=== PATIENT | female | born 1945 | race Caucasian/White ===

== ENCOUNTER 2022-12-08 09:25 | Day surgery (SDC) | payer MEDICARE, SELFPAY ==
[2022-10-07 14:45] VITALS: BMI 29.1
--- NOTE | 2022-12-04 12:49 | MHC.SHP ---
Pre-Procedural Eval Section A Date of Service: 12/04/22 The patient is an INPATIENT: No Changes since office visit: No Cold of Flu in the past 2 weeks, No New Medical Problems, No Changes in Medication and No Patient answered all questions The History & Physical has been completed within 30 days and I have reviewed it.: Yes Section B Chief Complaint: Age-related nuclear cataract, right eye Allergies: Allergies Allergy/AdvReac Type Severity Reaction Status Date / Time No Known Allergies Allergy Verified 10/07/22 14:44 [No Known Allergies*] Plan Diagnosis/Plan: Unchanged I have reviewed the history and physical and performed a pertinent physical examination on my patient. No changes have occurred unless specified. Time Spent With Patient Time: Total time managing care of this patient today ____ minutes.
--- NOTE | 2022-12-05 12:02 | HO.ANESPROP2 ---
Documented by User: Jana Duggan NP 12/05/22 12:02 HPI - Anesthesia Eval Consult details Narrative: 77yo F for Right Cataract Extraction IOL Insertion PCP cleared No previous cataract on record [facility] Past Medical History Medical History (Updated 10/07/22 @ 14:33 by Sol Mcclendon RN) CVA (cerebral vascular accident) Elevated cholesterol Surgical History Surgical History (Updated 10/07/22 @ 14:32 by Sol Mcclendon RN) History of hip surgery History of total left hip replacement Hx of blepharoplasty Hx of melanoma excision Social History Social History Are you a primary primary care coordinator to a significant other at home: No Do you presently have visiting nurse or other home services: No Patient Tobacco Use Status: Never used Tobacco Use of substances other than those prescribed or required for medical reasons: No Have you been hit, kicked, punched, or otherwise hurt by someone within the past year? If so, by whom?: No Are you DNR?: No Advance Directives Information Provided: Yes (as above noted-will bring copy DOS) Advance Directives on File: No Recently lost weight without trying: No Eating poorly because of decreased appetite: No Nutrition Risks: No Nutritional Risk Poor oral hygiene: No (has some missing teeth) Meds Allergies Allergy/AdvReac Type Severity Reaction Status Date / Time No Known Allergies Allergy Verified 10/07/22 14:44 [No Known Allergies*] Home Medications Medication Instructions Recorded Confirmed Last Taken Type aspirin 81 mg tablet,delayed 81 mg PO DAILY 10/07/22 10/07/22 12/01/22 History release cholecalciferol (vitamin D3) 50 50 mcg PO DAILY 10/07/22 10/07/22 12/07/22 History mcg (2,000 unit) capsule (Vitamin D3) pravastatin 10 mg tablet 10 mg PO QAM 10/07/22 10/07/22 12/07/22 History Exam Exam Date and Time: December 05, 2022 1202 Height,Weight and Vital Signs: Height 5 ft 5 in Weight 79.379 kg Assessment and Plan Assessment Anesthesia Assessment: Chart Reviewed Documented by User: Jessica Rivera MD 12/08/22 11:24 [facility] Past Medical History Medical History (Updated 10/07/22 @ 14:33 by Sol Mcclendon, RYAN) CVA (cerebral vascular accident) Elevated cholesterol Family History Family history of problems with anesthesia: No Surgical History Surgical History (Updated 10/07/22 @ 14:32 by Sol Mcclendon RN) History of hip surgery History of total left hip replacement Hx of blepharoplasty Hx of melanoma excision History of Problems with Anesthesia: No Social History Social History Are you a primary primary care coordinator to a significant other at home: No Do you presently have visiting nurse or other home services: No Patient Tobacco Use Status: Never used Tobacco Use of substances other than those prescribed or required for medical reasons: No Have you been hit, kicked, punched, or otherwise hurt by someone within the past year? If so, by whom?: No Are you DNR?: No Advance Directives Information Provided: Yes (as above noted-will bring copy DOS) Advance Directives on File: No Recently lost weight without trying: No Eating poorly because of decreased appetite: No Nutrition Risks: No Nutritional Risk Poor oral hygiene: No (has some missing teeth) Meds Allergies Allergy/AdvReac Type Severity Reaction Status Date / Time No Known Allergies Allergy Verified 10/07/22 14:44 [No Known Allergies*] Home Medications Medication Instructions Recorded Confirmed Last Taken Type aspirin 81 mg tablet,delayed 81 mg PO DAILY 10/07/22 10/07/22 12/01/22 History release cholecalciferol (vitamin D3) 50 50 mcg PO DAILY 10/07/22 10/07/22 12/07/22 History mcg (2,000 unit) capsule (Vitamin D3) pravastatin 10 mg tablet 10 mg PO QAM 10/07/22 10/07/22 12/07/22 History Exam Height,Weight and Vital Signs: Height 5 ft 5 in Weight 79.379 kg Vital Signs Temp Pulse Resp BP Pulse Ox O2 Del Method 12/08/22 10:31 97 F 74 20 156/80 H 96 Room Air Airway Mallampati Class: II (Crowding of teeth) TM Dist: >3cm Neck ROM: Full Loose/Missing/Broken Teeth: No (Denies broken, loose, missing teeth) Heart: RRR Lungs: CTAB Assessment and Plan Assessment Anesthesia Assessment: Anesthesia Plan Discussed Final Anesthetic Review Family History of Problems with Anesthesia: No History of Problems with Anesthesia: No NPO: Yes ASA Class: III Final Preanesthetic Review: No Changes in Pt Med Stat, Meds/Allgs Chart Reviewed, Consent Obtained/Reviewed and Anes Risks/Benef Reviewed Patient Risk: Intermediate Procedure Risk: Low Assessment/Block/Sedation in SS: Assess/Block/Sedation-SS Anesthetic Plan Anesthetic Plan: MAC: Disposition: Standard PACU
[2022-12-08 10:31] VITALS: BP 156/80; PULSE 74; RESP 20; TEMP 36.1; O2SAT 96
[2022-12-08] MEDS: Ketorolac Tromethamine 0.5% Op 5 ML DROPS 1 DROP EYE-RIGHT ×3 (10:46→10:48)
[2022-12-08] MEDS: Tetracaine HCl/PF 0.5% Oph Sol 4 ML DROPS 1 DROP EYE-RIGHT (10:46)
[2022-12-08] MEDS: Lactated Ringers 500 ML 50 ML IV (10:46)
[2022-12-08] MEDS: Phenylephrine HCL 2.5% Oph SoL 2 ML BOTTLE 1 DROP EYE-RIGHT ×3 (10:46→10:48)
[2022-12-08] MEDS: Cyclopentolate 1 % Ophth Sol 2 ML DRPBTL 1 DROP EYE-RIGHT ×3 (10:46→10:47)
[2022-12-08] MEDS: Tropicamide 1 % Ophth Sol 3 ML BTL 1 DROP EYE-RIGHT ×3 (10:46→10:47)
--- NOTE | 2022-12-08 12:16 | HO.PNOPHT ---
Ophthalmology Procedure Procedure Date of Service: 12/08/22 Ophthalmology Viscoelastic: Radha Mcmanust Dual Pack Pro Ophthalmology Lenses: TECPARTH [id number] (19) Procedure Notes: PREOPERATIVE DIAGNOSIS: Decreased visual acuity right eye secondary to cataract POSTOPERATIVE DIAGNOSIS: Same PROCEDURE: Right cataract extraction with intraocular lens insertion SURGEON: Daniel Ta M.D. ANESTHESIA: Topical/MAC ESTIMATED BLOOD LOSS: None COMPLICATIONS: None After obtaining informed consent, the patient was brought to the operating room suite and placed in the supine position. After adequate sedation per anesthesia, topical drops of Tetracaine were given to the right eye. The eye was then prepped and draped in the usual sterile fashion. The operating room microscope was then positioned over the operative eye and a lid speculum placed. A paracentesis was created. Viscoelastic was then instilled into the anterior chamber. A three plane incision was then created temporally, utilizing a 2.85 mm keratome. Capsulotomy forceps were then utilized to create a circular tear capsulotomy. Hydrodissection and hydrodelineation were carried out until adequate mobilization of the nucleus occurred. Phacoemulsification was then utilized to remove the dense central nucleus followed by removal of the cortical material utilizing the automated aspiration irrigation unit. Viscoelastic was instilled into the posterior capsular bag followed by placement of a posterior chamber intraocular lens without difficulty. The residual Viscoelastic was then removed utilizing the automated IA machine. The wound was checked and found to be watertight. The patient tolerated the procedure well and the lid speculum was removed. Intracameral injection of Vigamox 0.1 mL followed by a subtenon injection of Kenalog-40 0.2 mL were administered. The patient will be seen in the a.m.
[2022-12-08 12:43] VITALS: BP 177/85; PULSE 71; RESP 18; TEMP 37.5; O2SAT 96
== END 2022-12-08 12:47 | disposition home or self-care (01) ==
PROVIDERS: PCP Internal Medicine; Visit Provider Ophthalmology
PROC: (CPT 66985; principal; 2022-12-08 13:20)
DX: H25.11 Age-related nuclear cataract, right eye (principal); H40.013 Open angle with borderline findings, low risk, bilateral; H35.361 Drusen (degenerative) of macula, right eye; H35.00 Unspecified background retinopathy; E78.00 Pure hypercholesterolemia, unspecified; M81.0 Age-related osteoporosis without current pathological fracture; Z86.73 Personal history of transient ischemic attack (TIA), and cerebral infarction without residual deficits; Z87.81 Personal history of (healed) traumatic fracture; Z91.81 History of falling; Z85.820 Personal history of malignant melanoma of skin; Z79.899 Other long term (current) drug therapy; Z79.82 Long term (current) use of aspirin
CPT/HCPCS: 66984; J2250; J3010; J3301; V2632

== ENCOUNTER 2022-12-22 09:37 | Day surgery (SDC) | payer MEDICARE, SELFPAY ==
[2022-10-07 14:48] VITALS: BMI 29.1
--- NOTE | 2022-12-19 08:47 | MHC.SHP ---
Pre-Procedural Eval Section A Date of Service: 12/19/22 The patient is an INPATIENT: No Changes since office visit: No Cold of Flu in the past 2 weeks, No New Medical Problems, No Changes in Medication and No Patient answered all questions The History & Physical has been completed within 30 days and I have reviewed it.: Yes Section B Chief Complaint: Age-related nuclear cataract, left eye Allergies: Allergies Allergy/AdvReac Type Severity Reaction Status Date / Time No Known Allergies Allergy Verified 10/07/22 14:44 [No Known Allergies*] Plan Diagnosis/Plan: Unchanged I have reviewed the history and physical and performed a pertinent physical examination on my patient. No changes have occurred unless specified. Time Spent With Patient Time: Total time managing care of this patient today ____ minutes.
--- NOTE | 2022-12-19 10:10 | HO.ANESPROP2 ---
Documented by User: Jana Duggan NP 12/19/22 10:10 HPI - Anesthesia Eval Consult details Narrative: 77yo F for Left Cataract Extraction IOL Insertion PCP cleared Right eye 12/08/22 with MAC: No anesthesia record available [facility] Past Medical History Medical History CVA (cerebral vascular accident) Elevated cholesterol Family History Family history of problems with anesthesia: No Surgical History Surgical History History of hip surgery History of total left hip replacement Hx of blepharoplasty Hx of melanoma excision History of Problems with Anesthesia: No Social History Social History Are you a primary home health care case manager to a significant other at home: No Do you presently have visiting nurse or other home services: No Patient Tobacco Use Status: Never used Tobacco Use of substances other than those prescribed or required for medical reasons: No Have you been hit, kicked, punched, or otherwise hurt by someone within the past year? If so, by whom?: No Are you DNR?: No Advance Directives Information Provided: Yes (as above noted-will bring copy DOS) Advance Directives on File: No Recently lost weight without trying: No Eating poorly because of decreased appetite: No Nutrition Risks: No Nutritional Risk Poor oral hygiene: No (has some missing teeth) Meds Allergies Allergy/AdvReac Type Severity Reaction Status Date / Time No Known Allergies Allergy Verified 12/22/22 10:09 [No Known Allergies*] Home Medications Medication Instructions Recorded Confirmed Last Taken Type aspirin 81 mg tablet,delayed 81 mg PO DAILY 10/07/22 10/07/22 12/01/22 History release cholecalciferol (vitamin D3) 50 50 mcg PO DAILY 10/07/22 10/07/22 12/07/22 History mcg (2,000 unit) capsule (Vitamin D3) pravastatin 10 mg tablet 10 mg PO QAM 10/07/22 10/07/22 12/07/22 History Exam Exam Date and Time: December 19, 2022 1010 Height,Weight and Vital Signs: Height 5 ft 5 in Weight 79.379 kg Assessment and Plan Assessment Anesthesia Assessment: Chart Reviewed Final Anesthetic Review Family History of Problems with Anesthesia: No History of Problems with Anesthesia: No Documented by User: Sha Ocampo MD 12/22/22 13:58 PMF[facility] Past Medical History Medical History CVA (cerebral vascular accident) Elevated cholesterol Functional capacity: independent ambulation Surgical History Surgical History History of hip surgery History of total left hip replacement Hx of blepharoplasty Hx of melanoma excision Social History Social History Are you a primary home health care case manager to a significant other at home: No Do you presently have visiting nurse or other home services: No Patient Tobacco Use Status: Never used Tobacco Use of substances other than those prescribed or required for medical reasons: No Have you been hit, kicked, punched, or otherwise hurt by someone within the past year? If so, by whom?: No Are you DNR?: No Advance Directives Information Provided: Yes (as above noted-will bring copy DOS) Advance Directives on File: No Recently lost weight without trying: No Eating poorly because of decreased appetite: No Nutrition Risks: No Nutritional Risk Poor oral hygiene: No (has some missing teeth) Meds Allergies Allergy/AdvReac Type Severity Reaction Status Date / Time No Known Allergies Allergy Verified 12/22/22 10:09 [No Known Allergies*] Home Medications Medication Instructions Recorded Confirmed Last Taken Type aspirin 81 mg tablet,delayed 81 mg PO DAILY 10/07/22 10/07/22 12/01/22 History release cholecalciferol (vitamin D3) 50 50 mcg PO DAILY 10/07/22 10/07/22 12/07/22 History mcg (2,000 unit) capsule (Vitamin D3) pravastatin 10 mg tablet 10 mg PO QAM 10/07/22 10/07/22 12/07/22 History Exam Airway Mallampati Class: III TM Dist: >3cm Neck ROM: Full Loose/Missing/Broken Teeth: Yes Heart: S1,S2 Lungs: b/l breath sounds Assessment and Plan Assessment Anesthesia Assessment: Anesthesia Plan Discussed Final Anesthetic Review NPO: Yes ASA Class: II Final Preanesthetic Review: Meds/Allgs Chart Reviewed, Consent Obtained/Reviewed and Anes Risks/Benef Reviewed Patient Risk: Intermediate Procedure Risk: Intermediate Anesthetic Plan Anesthetic Plan: MAC: Disposition: Standard PACU
[2022-12-22] MEDS: Tetracaine HCl/PF 0.5% Oph Sol 4 ML DROPS 1 DROP EYE-LEFT (10:10)
[2022-12-22] MEDS: Cyclopentolate 1 % Ophth Sol 2 ML DRPBTL 1 DROP EYE-LEFT ×3 (10:12→10:25)
[2022-12-22 10:14] VITALS: BP 145/68; PULSE 72; RESP 16; TEMP 36.3; O2SAT 97
[2022-12-22] MEDS: Tropicamide 1 % Ophth Sol 3 ML BTL 1 DROP EYE-LEFT ×3 (10:14→10:26)
[2022-12-22] MEDS: Ketorolac Tromethamine 0.5% Op 5 ML DROPS 1 DROP EYE-LEFT ×3 (10:16→10:27)
[2022-12-22] MEDS: Phenylephrine HCL 2.5% Oph SoL 2 ML BOTTLE 1 DROP EYE-LEFT ×3 (10:17→10:28)
[2022-12-22] MEDS: Lactated Ringers 500 ML 50 ML IV (10:29)
--- NOTE | 2022-12-22 11:22 | HO.PNOPHT ---
Ophthalmology Procedure Procedure Date of Service: 12/22/22 Ophthalmology Viscoelastic: Healmaría Duet Dual Pack Pro Ophthalmology Lenses: TECPARTH [id number] (19) Procedure Notes: PREOPERATIVE DIAGNOSIS: Decreased visual acuity left eye secondary to cataract POSTOPERATIVE DIAGNOSIS: Same PROCEDURE: Left cataract extraction with intraocular lens insertion SURGEON: Daniel Ta M.D. ANESTHESIA: Topical/MAC ESTIMATED BLOOD LOSS: None COMPLICATIONS: None After obtaining informed consent, the patient was brought to the operation room suite and placed in the supine position. After adequate sedation per anesthesia, topical drops of Tetracaine were given to the left eye. The eye was then prepped and draped in the usual sterile fashion. The operating room microscope was then positioned over the operative eye and a lid speculum placed. A paracentesis was created. Viscoelastic was then instilled into the anterior chamber. A three plane incision was then created temporally, utilizing a 2.85 mm keratome. Capsulotomy forceps were then utilized to create a circular tear capsulotomy. Hydrodissection and hydrodelineation were carried out until adequate mobilization of the nucleus occurred. Phacoemulsification was then utilized to remove the dense central nucleus followed by removal of the cortical material utilizing the automated aspiration irrigation unit. Viscoat elastic was instilled into the posterior capsular bag followed by placement of a posterior chamber intraocular lens without difficulty. The residual Viscoat elastic was then removed utilizing the automated IA machine. The wound was check and found to be watertight. The patient tolerated the procedure well and the lid speculum was removed. Intracameral injection of Vigamox 0.1 mL followed by a subtenon injection of Kenalog-40 0.2 mL were administered. The patient will be seen in the a.m.
[2022-12-22 11:43] VITALS: BP 158/71; PULSE 67; RESP 18; TEMP 36.6; O2SAT 98
== END 2022-12-22 11:57 | disposition home or self-care (01) ==
LOC: HO.SSS 09:38
PROVIDERS: PCP Internal Medicine; Visit Provider Ophthalmology
PROC: (CPT 66985; principal; 2022-12-22 11:20)
DX: H25.12 Age-related nuclear cataract, left eye (principal); H54.7 Unspecified visual loss; E78.00 Pure hypercholesterolemia, unspecified; M81.0 Age-related osteoporosis without current pathological fracture; E55.9 Vitamin D deficiency, unspecified; Z79.899 Other long term (current) drug therapy; Z79.82 Long term (current) use of aspirin; Z86.73 Personal history of transient ischemic attack (TIA), and cerebral infarction without residual deficits
CPT/HCPCS: 66984; J2250; J3010; J3301; V2632

== ENCOUNTER 2023-03-26 15:11 | Emergency (ER) | payer MEDICARE, SELFPAY ==
--- NOTE | ~2023-03-26 | CT_ITS ---
EXAMINATION: CT ABDOMEN AND PELVIS WITHOUT CONTRAST CLINICAL INFORMATION: Severe right pelvic pain; question fracture. COMPARISON: CT abdomen and pelvis dated 01/23/2016. TECHNIQUE: Multidetector volumetric imaging was performed from the superior aspect of the liver through the pubic symphysis. Sagittal and coronal reformatted images were obtained on the technologist's workstation. This CT examination was performed using dose optimization techniques as appropriate, variously including the following: *Automated exposure control *Adjustment of mA and/or kV according to patient size (this includes techniques or standardized protocols for targeted exams where dose is matched to indication/reason for exam; i.e. extremities or head) *Use of iterative reconstruction technique DLP: 593 mGy-cm FINDINGS: LUNG BASES: There is multi-focal very mild bibasilar linear scar/subsegmental atelectasis. LIVER, GALLBLADDER, AND BILIARY TREE: The liver is normal in size, shape, and attenuation. No focal hepatic lesion or biliary ductal dilatation is present. The gallbladder is unremarkable with no evidence of radiopaque gallstones, gallbladder wall thickening, or obvious pericholecystic inflammatory changes. PANCREAS: Unremarkable. SPLEEN: Unremarkable. ADRENAL GLANDS: Unremarkable. KIDNEYS AND URETERS: The kidneys are normal in size, shape, and attenuation. No hydronephrosis, hydroureter, or calculi seen. No perinephric stranding. BLADDER: Largely obscured by metallic streak artifact. GASTROINTESTINAL TRACT: There is a moderately large hiatus hernia. The small and large bowel are unremarkable. The appendix is unremarkable. ABDOMINAL WALL: There is a small fat-containing umbilical hernia. LYMPH NODES: Normal. VASCULAR: There is moderate aortoiliac atherosclerotic calcification. No abdominal aortic aneurysm is seen. PELVIC VISCERA: There are multiple uterine fibroids, with uterine enlargement noted. No adnexal mass or pelvic free fluid is seen. OSSEOUS STRUCTURES: A right femoral jose and compression screw are noted, and there is a left hip arthroplasty. A right hip joint effusion is seen. There is interim appearance of moderate T10 and L1 and mild L3 upper endplate compression fractures. At T8-T9 and T9-T10, there is vacuum disc phenomenon. There is multi-level lumbar spondylosis and facet arthropathy. No aggressive osseous lesion is seen. CT/CT abdomen pelvis wo IV con IMPRESSION: 1. There is interim appearance of lower thoracic and lumbar compression fractures, as detailed. 2. A right hip joint effusion is seen. 3. There is a moderately large hiatus hernia. 4. There is uterine fibroid disease. 5. There is a small fat-containing umbilical hernia. Fleischner guidelines were followed.
--- NOTE | ~2023-03-26 | XR_ITS ---
EXAMINATION: XR HIP, LEFT CLINICAL INFORMATION: Left hip pain COMPARISON: None available. TECHNIQUE: Two views of the left hip. FINDINGS: AP film of the pelvis does not demonstrate any evidence of acute fracture or diastases. No evidence of fusion or widening of the sacroiliac joints. Osteitis pubis is present. There is degenerative disc disease seen involving the L4-L5 and L5-S1 levels with facet arthropathy. Patient status post left total hip arthroplasty and placement of compression screw and jose about the proximal right femur. No acute fracture or dislocation of the right hip is appreciated. The right hip joint space appears maintained with some mild collar spurring. 2 views of the left femur demonstrate total arthroplasty with femoral and acetabular components in position. No evidence of hardware failure is appreciated and no evidence of acute fracture or dislocation. XR/XR hip LT w PEL1V IMPRESSION: Osteitis pubis. Degenerative disc disease with facet arthropathy L4-S1. No significant abnormality of the right hip identified status post compression screw and jose fixation. Status post left hip arthroplasty without significant abnormality appreciated.
[2023-03-26 15:32] VITALS: BP 143/75; PULSE 82; RESP 18; TEMP 36.7; O2SAT 98; BMI 27.4
--- NOTE | 2023-03-26 15:34 | ED_ITS ---
HPI - General Adult General Chief complaint: Fall Stated complaint: Fall/hip pain Time Seen by Provider: 03/26/23 18:42 Source: patient and family Mode of arrival: ambulatory Limitations: no limitations History of Present Illness HPI narrative: 77-year-old female presenting to the emergency department with a history of high cholesterol, presents emergency department with complaints of left hip pain since today. 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 She admits to having left hip pain and left groin pain. She states that she had this replaced in 2012 at [facility]. Denies LOC or head strike. She is not on blood thinners. Related Data Home Medications Medication Instructions Recorded Confirmed aspirin 81 mg tablet,delayed 81 mg PO DAILY 10/07/22 10/07/22 release cholecalciferol (vitamin D3) 50 50 mcg PO DAILY 10/07/22 10/07/22 mcg (2,000 unit) capsule (Vitamin D3) pravastatin 10 mg tablet 10 mg PO QAM 10/07/22 10/07/22 Allergies Allergy/AdvReac Type Severity Reaction Status Date / Time No Known Allergies Allergy Verified 12/22/22 10:09 [No Known Allergies*] Review of Systems Review of Systems: All other systems are reviewed and are negative Constitutional: Reports as per HPI and Reports no additional constitutional complaints Eyes: Reports as per HPI and Reports no additional eye complaints Reports system reviewed and no additional complaints, except as documented Cardiovascular: Reports as per HPI and Reports no additional cardiovascular complaints Respiratory: Reports as per HPI and Reports no additional respiratory complaints Gastrointestinal: Reports as per HPI and Reports no additional gastrointestinal complaints Genitourinary: Reports no additional female genitourinary complaints Musculoskeletal: Reports no additional musculoskeletal complaints Skin/Breast: Reports system reviewed and no additional complaints, except as docu Psychiatric: Reports no additional psychiatric complaints Endocrine: Reports no additional endocrine complaints Hematologic/Lymphatic: Reports no additional hematologic/lymphatic complaints Allergic/Immunologic: Reports no additional allergic/immunologic complaints Reports system reviewed and no additional complaints, except as documented and Reports Abnormal speech present [facility] Past Medical History Medical History CVA (cerebral vascular accident) Elevated cholesterol Surgical History History of hip surgery History of total left hip replacement Hx of blepharoplasty Hx of melanoma excision Social History Social History Are you a primary care program director to a significant other at home: No Do you presently have visiting nurse or other home services: No Patient Tobacco Use Status: Never used Tobacco Advance Directives: No Advance Directives Information Provided: No Physical Exam ED Vital Signs: Vital Signs - 24 hr 03/26/23 15:32 Temperature 98.1 F Pulse Rate 82 Respiratory Rate 18 Blood Pressure 143/75 H Pulse Oximetry 98 Oxygen Delivery Method Room Air BMI result Body Mass Index 27.4 Vital signs have been reviewed as appeared to be correct. Blood pressure normal. Heart rate normal. Respiration rate normal. Temperature normal. Oxygen saturation normal. Appearance: Alert. Oriented X3. No acute distress. Head: Normal external exam. Normocephalic. Atraumatic. No Esteban signs noted. No raccoon eyes noted Eyes: PERRLA. EOMI. Conjunctiva and sclera normal. Eyelids normal. ENT: TM's Normal. Pharynx normal. Uvula midline. Moist mucous membranes. No trismus noted. No drooling noted. No muffled voice noted. Neck: Normal inspection. Neck supple. FROM. No adenopathy. Thyroid Normal. No meningeal signs. No neck mass noted. CVS: Normal heart rate and rhythm. Heart sound normal. No murmurs noted. Pulses normal throughout. Respiratory: No respiratory distress. Painless inspiration. Breath sounds normal. No wheezes/rales/rhonchi noted. Chest nontender. No accessory muscle usage noted or decreased air movement noted. Abdomen: Soft and nontender. Bowel sounds normal in all 4 quadrants. No distention noted. No organomegaly noted. No visible injury noted. Back: No CVA tenderness. Full range of motion noted. Skin: Skin warm and dry. Normal skin color. Normal skin turgor. No rashes/lesions/lacerations noted. Extremities: Left pelvis tenderness, no rebound tenderness. Neuro: Oriented X 3. Cranial nerve exam: II-XII are grossly intact No motor deficit. No sensory deficit. Reflexes normal. Course Course Course Narrative: This is an RME: Additional HPI, ROS, PE not included below will be deferred to primary provider. Plan: left hip x-ray ordered Medical Decision Making Differential Diagnosis Differential Diagnoses: The differential diagnosis associated with the presentation includes (Hip fracture, pelvic fracture.) Admission/Observation Consideration of admission/observation: Escalation of care including admission/observation considered Lab Data MDM Lab Attestation statement: I reviewed the patient's lab results. Independent Interpretation I performed an independent interpretation of an: CT Scan (Abdomen and pelvis:1. There is interim appearance of lower thoracic and lumbar compression fractures, as detailed. 2. A right hip joint effusion is seen. 3. There is a moderately large hiatus hernia. 4. There is uterine fibroid disease. 5. There is a small fat-containing umbilical hernia.) Radiology Impression Discussion of test interpretation with radiology: I have reviewed the radiologist's reading. Discharge Plan Discharge Clinical Impression: Fall, Acute pelvic pain, Compression fracture of body of thoracic vertebra Patient Disposition: Elopement Prescriptions: No Action aspirin [Aspirin Low-Strength] 81 mg Tablet,Delayed Release (Dr/Ec) 81 mg PO DAILY pravastatin 10 mg Tablet 10 mg PO QAM cholecalciferol (vitamin D3) [Vitamin D3] 50 mcg (2,000 unit) Capsule 50 mcg PO DAILY Interventions: ED Discharge Assessment Last Done: 03/26/23 21:05 Discharge Date/Time: 03/26/23 21:07
== END 2023-03-26 21:07 | disposition left against medical advice (07) ==
PROVIDERS: Emergency Provider Emergency Medicine; PCP Internal Medicine
DX: R10.2 Pelvic and perineal pain (principal); M25.452 Effusion, left hip; K44.9 Diaphragmatic hernia without obstruction or gangrene; K42.9 Umbilical hernia without obstruction or gangrene; D25.9 Leiomyoma of uterus, unspecified; S22.9XXA Fracture of bony thorax, part unspecified, initial encounter for closed fracture; W17.81XA Fall down embankment (hill), initial encounter; Y93.H2 Activity, gardening and landscaping; Y92.017 Garden or yard in single-family (private) house as the place of occurrence of the external cause; Y99.9 Unspecified external cause status
CPT/HCPCS: 73502; 74176; 99282; 99284

== ENCOUNTER 2025-07-12 21:11 | Emergency (ER) | payer MEDICARE, SELFPAY ==
--- NOTE | ~2025-07-12 | XR_ITS ---
CLINICAL HISTORY: fall, pain, prior total left hip 2 view left femur Comparison: CT/REG/SR - CT ABDOMEN PELVIS WITHOUT IV CONTRAST - 03/26/23 20:14 EDT CR/SR - XR HIP 1 VIEW LEFT WITH PELVIS - 03/26/23 16:12 EDT Findings: Status post left total hip arthroplasty with intact hardware. Acute left greater trochanteric fracture. No hip dislocation. Osteopenia. Visualized bowel-gas pattern is unremarkable. IMPRESSION: Status post left total hip arthroplasty with intact hardware. Acute left greater trochanteric fracture without hip dislocation. This document has been electronically signed by: Lewis Gaspar MD on 07/12/2025 22:43:58
--- NOTE | ~2025-07-12 | XR_ITS ---
CLINICAL HISTORY: fall, left sided pain 1 view pelvis Comparison: None provided Findings: Status post left total hip arthroplasty with intact hardware. Left greater trochanteric fracture, as reported on same day radiographs of the left femur. Status post open reduction internal fixation of right femur fracture with intact hardware. No hip dislocations. No fractures seen elsewhere. Osteopenia. Bowel-gas pattern is unremarkable. IMPRESSION: Status post left total hip arthroplasty and open reduction internal fixation of right femur fracture, both with intact hardware. Left greater trochanteric fracture, as reported on same day radiographs of the left femur. This document has been electronically signed by: Lewis Gaspar MD on 07/12/2025 22:47:44
--- NOTE | ~2025-07-12 | CT_ITS ---
EXAMINATION: CT HIP WITHOUT CONTRAST, LEFT CLINICAL INFORMATION: Evaluate periprosthetic fracture COMPARISON: X-ray 07/12/2025 TECHNIQUE: Multidetector volumetric imaging was obtained through the left hip without contrast material. Multiplanar reformatted images were submitted in coronal and sagittal planes. This CT examination was performed using dose optimization techniques as appropriate, variously including the following: *Automated exposure control *Adjustment of mA and/or kV according to patient size (this includes techniques or standardized protocols for targeted exams where dose is matched to indication/reason for exam; i.e. extremities or head) *Use of iterative reconstruction technique FINDINGS: Osseous mineralization is decreased. Status post left total hip arthroplasty. Expected position and alignment of the arthroplasty components. Prominent metallic artifact limiting evaluation. Acute, comminuted and displaced fracture of the greater trochanter, the fracture plane extending inferiorly along the lateral aspect of the subtrochanteric region. The acetabular component of the prosthesis procedure. Metallic artifact limits evaluation. The nisqually central/axial bony acetabulum is not clearly identified, which could be related to prominent bony thinning/discontinuity. No acute fracture is identified of the visualized pubic rami. No acute fracture seen of the partially visualized sacrum. The left SI joint is intact. Moderate symphysis pubis degeneration. No measurable muscle tear. Metallic artifact limiting evaluation for joint effusion. No free fluid in the abdomen. Soft tissue focus in the pelvis, suboptimally/incompletely evaluated, of uncertain etiology, possibly could represent the uterus. Further imaging as clinically indicated. CT/CT hip LT wo IV con IMPRESSION: Prominent metallic artifact. Osseous mineralization is decreased. This limits evaluation. Acute, comminuted displaced fracture of the greater trochanter, with the fracture plane extending inferiorly along the lateral aspect of the subtrochanteric region. Status post total hip arthroplasty. Metallic artifact limiting evaluation. Nonvisualization of the central portion of the bony acetabulum, could be related to thinning or discontinuity. Additional findings and details as above. Electronically signed by: Rene Cook MD 07/13/2025 12:21 PM EDT
[2025-07-12 21:23] VITALS: BP 130/80; BP 141/71; PULSE 82; PULSE 87; RESP 18; TEMP 36.2; O2SAT 97
[2025-07-12 21:24] VITALS: BP 152/72; PULSE 83; RESP 20; TEMP 36.4; O2SAT 95; BMI 27.3
--- NOTE | 2025-07-12 21:29 | ED_ITS ---
HPI - General Adult General Chief complaint: Fall Stated complaint: FALL Time Seen by Provider: 07/12/25 21:29 History of Present Illness ED Provider: Dada SILVA narrative: The patient is an 79-year-old female with a history of a left total knee replacement surgery. She says that today she was carrying a box into her house. The front or the house was closed with a screen door but she did not realize the screen door walked into the screen box in front of her. She says that she bounced backwards after walking into the screening. She then fell onto her left side, landing primarily in the region of her left hip. She did not hit her head. She had no loss of consciousness. There was no headache or neck pain. No pain in her spine. No pain in her arms or her chest or her abdomen. She tried to get up but had too much pain in the left hip or thigh region to be able to get up. An ambulance was called she was brought to the hospital. No numbness or tingling in the foot. She is not on anticoagulation Related Data Home Medications ?Medication ?Instructions ?Recorded ?Confirmed aspirin 81 mg tablet,delayed 81 mg PO DAILY 10/07/22 1 release pravastatin 20 mg tablet 20 mg PO DAILY 07/13/2506/29 Allergies Allergy/AdvReac Type Severity Reaction Status Date / Time No Known Allergies (No Known Allergy Verified 07/12/25 21:29 Allergies*) Review of Systems Review of Systems: Yes all other systems are reviewed and are negative PMFSH Past Medical History Medical History CVA (cerebral vascular accident) Elevated cholesterol Surgical History History of hip surgery History of total left hip replacement Hx of blepharoplasty Hx of melanoma excision Social History Social History Are you a primary day care supervisor to a significant other at home: No Do you presently have visiting nurse or other home services: No Patient Tobacco Use Status: Never used Tobacco Advance Directives: No Advance Directives Information Provided: No Physical Exam ED Vital Signs: Vital Signs - 24 hr 07/12/25 21:23 07/12/25 21:24 07/13/25 06:06 Temperature 97.1 F 97.6 F 97.8 F Pulse Rate 82 83 77 Respiratory Rate 18 20 Blood Pressure 141/71 H 152/72 H 154/72 H Pulse Oximetry 97 95 95 Oxygen Delivery Method Room Air Room Air Room Air 07/13/25 07:49 07/13/25 14:28 Temperature 97.0 F 98.0 F Pulse Rate 76 77 Respiratory Rate 18 16 Blood Pressure 168/86 H 140/70 H Pulse Oximetry 96 98 Oxygen Delivery Method Room Air Room Air BMI result Body Mass Index 27.3 Const Other: The patient is an 79-year-old woman who was awake and alert. She is cheerful and cooperative. She does not seem in distress. HENMT Other: The face is symmetrical. ?Mucous membranes moist., no signs of trauma to the head or the face Eyes Other: Pupils are round equal, conjunctivae are clear, extraocular movements intact. No signs of trauma to the eyes Chest Other: No chest wall tenderness Resp Effort & Inspection: normal respiratory effort Auscultation: clear to auscultation bilaterally Cardio Rate: regular rate Rhythm: regular rhythm Heart sounds: S1 normal heart sound present and S2 normal heart sound present GI Other: Abdomen is soft and nontender Skin Other: Skin is intact. The skin is dry and unremarkable Neuro Other: The patient is awake, alert, pleasant, cooperative. Cranial nerves are grossly intact. Mental status is normal. She moves her arms normally and appropriately. She moves her right leg normally and appropriately. She has a pain with the movement of the left leg but she seems to have intact strength aside from the pain. Sensation is intact throughout. Extrem Other: No signs of trauma to the upper extremities or the right leg. Good pulses in both feet. The patient has tenderness in the region of the left mid thigh and proximal thigh and hip. There is a length discrepancy between the legs which is chronic. The right leg is chronically short than the left leg. The patient has pain with movement of the left hip but there iss no gross deformity. Course Course Course Narrative: 07/13/2025 0753 Phyllis Scales PA-C ---> Observation continues. Pending ortho recommendations. At minimum, patient will be non weight bearing and allowed to eat while we await their recommendations. Patient will likely need placed in a short term rehab facility. 07/13/2025 0822 Phyllis Scales PA-C ---> The orthopedic team recommended a CT scan of the hip / femur to confirm it is only a greater trochanter fracture and the patient declined. Patient stated that if surgery was ever recommended, she'd decline it. Patient is open to physical therapy evaluation / services. Patient declined to have labs, EKG, or chest XR performed. 07/13/2025 1223 Phyllis Scales PA-C ---> Patient expressed some vague suicidal ideation to Dr. Garland with no plan. I consulted with the CARE team who evaluated the patient and determined she is not in an acute crisis and does not need to be placed under a section 12 or brought in for psychiatric treatment. Patient ultimately did agree to getting a CT scan of her hip performed, read is pending at this time. 07/13/2025 1625 Phyllis Scales PA-C ---> Patient's CT was completed and showed acute, comminuted displaced fracture of the greater trochanter, with the fracture plane extending inferiorly along the lateral aspect of the subtrochanteric region. I spoke with the orthopedic team who confirmed the patient does not need immediate surgical intervention and is to remain non weight bearing. Observation ended at 1625. Patient to be discharged to [facility] for STR. Medications Administered Generic Name Dose Route Start Last Admin Trade Name Freq PRN Reason Stop Dose Admin Pravastatin Sodium 10 mg 07/13/25 11:15 07/13/25 12:55 Pravastatin Sodium 10 Mg Tablet PO 10 mg DAILY GLENDY Administration Discontinued Medications Generic Name Dose Route Start Last Admin Trade Name Freq PRN Reason Stop Dose Admin Acetaminophen 975 mg 07/12/25 22:16 07/12/25 22:20 Acetaminophen 325 Mg Tablet PO 07/12/25 22:17 975 mg ONCE ONE Administration Ibuprofen 400 mg 07/12/25 22:16 07/12/25 22:20 Ibuprofen 400 Mg Tablet PO 07/12/25 22:17 400 mg ONCE ONE Administration Medical Decision Making Medical Decision Making [facility] Narrative: The patient is an 79-year-old female who presents with a an isolated injury to her left hip area. She has a fallen which she sustained no other injuries. She is not on anticoagulation. She has not been ill recently. An x-ray of the left femur and the pelvis was obtained that shows some fracture in the region of the greater trochanter near the prosthesis of her old total hip replacement from 2013. I reviewed the x-ray images of the fracture with Orthopedics. Recommendation is for the patient to be nonweightbearing. The patient lives at home with her but I do not think she would do well with nonweightbearing options at home tonight. Therefore she was placed in physician observation to be evaluated later today, possibly by physical therapy. Additionally, there was a question that there might be more input from Orthopedics in the morning. The patient was therefore placed in physician observation and move to the overflow area of the emergency department. This morning orthopedics has asked for a CAT scan of the hip to help evaluate the degree of injury and whether a surgical repair might be recommended. When the patient was told that she would need a CAT scan she was quite unhappy about that. She seems somewhat ambivalent about how she feels about medical interventions. I explained that a CAT scan might help give a better definition of the injury and a sense of any prognosis. The patient was unhappy about needing any additional investigations but ultimately grudingly agreed to allow the CT scan. Discharge Plan Discharge Clinical Impression: Closed fracture of greater trochanter of left femur Patient Disposition: [facility] Transfer Details: [facility] Instructions: Hip Fracture (ED) Additional Instructions: Your imaging today showed evidence of a broken left hip / femur. It is crucial you remain non weight bearing until you are cleard to do so by the orthopedic team. Our orthopedic team recommends you see your original orthopedist office within the [facility] system. IF you are prescribed home medications and/or you are taking over the counter medications at home - it is very important you continue to do so as prescribed / directed unless told otherwise. Follow up with your primary care provider. Return to the emergency department immediately if your symptoms worsen or if you develop any numbness, tingling, dizziness, shortness of breath, difficulty breathing, chest pain, blurry vision, loss of vision, nausea, vomiting, abdominal pain, fever, chills, back pain, or any other complaints. Please see the information below about our Patient Portal. If you are not yet enrolled in the [facility] Patient Portal, you will receive an enrollment email invitation following your visit to any [facility] [place] care setting. You may also self-enroll in the Patient Portal by visiting our website: [email or web address] The following information is required to access the Patient Portal: - Your [facility] [place] Medical Record Number - Your personal home email address (must match what is in your electronic medical record, Registration staff can assist with this) - Name - Date of Capabilities of the Patient Portal: - Message some providers - View upcoming appointments - Access your health summary, medical history, and visit history - View current conditions and allergies - View procedure and lab results - View your medications, including guidelines, side effects, and precautions - Complete pre-appointment questionnaires requested by your provider - Ready summary reports of your office visits and procedures To access the Patient Portal Mobile [employer], follow these directions: - Search [employer]Doc in the [employer] Store or [employer] Store - Download the [employer]ia - Search for - Enter your login/password Prescriptions: No Action aspirin [Aspirin Low-Strength] 81 mg Tablet,Delayed Release (/Ec) 81 mg PO DAILY pravastatin 20 mg tablet 20 mg PO DAILY Referrals: Shikha Brock [Outside] Referral Note: [phone] Print Language: Belarusian
[2025-07-13 06:06] VITALS: BP 154/72; PULSE 77; TEMP 36.6; O2SAT 95
[2025-07-13 07:49] VITALS: BP 168/86; PULSE 76; RESP 18; TEMP 36.1; O2SAT 96
--- NOTE | 2025-07-13 08:13 | PC.NURSE ---
Pt refused cxr/labs/ekg. Pt educated on need- pt continues to decline. CHRIS Ferguson made aware of situation.
--- NOTE | 2025-07-13 10:21 | MHC.CM.ED ---
Addendum entered by Fernanda Alamo 07/13/25 12:49: Multiple bed offers available. List of facilities provided from [facility]. Patient and will provide 2 choices. Original Note: Received case management consult overnight. Patient came to the ER due to a fall. Work up indicated left femoral fracture. No surgery indicated at this time. Physical therapy eval ordered and pending. Met with patient in regards to discharge planning. Patient lives with her Bernard, normally ambulates independently and had no services prior to coming to the hospital. PCP verified. Patient states she has a HCP at home. Patient has never been to STR. Patient hoping to ho home with physical therapy. Patient aware STR can potentially be recommended and patient would be agreeable. Referral for STR will be broadcasted in [facility]. Bed offers will be discussed with patient. Continue to monitor for d/c needs.
[2025-07-13 14:28] VITALS: BP 140/70; PULSE 77; RESP 16; TEMP 36.7; O2SAT 98
--- NOTE | 2025-07-13 14:39 | PHA.MEDREC ---
Addendum entered by Jones Cooley PharmD 07/13/25 15:05: reviewed Original Note: Pharmacy Consult ? Medication Reconciliation Pharmacy reviewed med rec done by nursing. Spoke with pt and she confirmed she takes Pravastatin 20mg QD and gets that through a mail order service in [place].
--- NOTE | 2025-07-13 15:26 | MHC.CM.ED ---
Insurance auth has been obtained by Shikha Irwin. [facility] BLS booked for 5pm. Patient, Gely Andrade RN and Anupama PEREZ aware. Continue to monitor for d/c needs.
--- NOTE | 2025-07-13 16:27 | MHC.CARE ---
Patient evaluated by the CARE Team, there is no need for an inpatient psychiatric admission at this time. Provider, CHRIS Lee updated
[2025-07-13 20:05] VITALS: BP 140/70; PULSE 77; RESP 16; TEMP 36.7; O2SAT 98
== END 2025-07-13 20:05 | disposition skilled nursing facility (03) ==
PROVIDERS: Emergency Provider Emergency Medicine; PCP Student in an Organized Health Care Education/Training Program
DX: S72.112A Displaced fracture of greater trochanter of left femur, initial encounter for closed fracture (principal); R45.851 Suicidal ideations; M79.605 Pain in left leg; M25.552 Pain in left hip; R26.2 Difficulty in walking, not elsewhere classified; W01.0XXA Fall on same level from slipping, tripping and stumbling without subsequent striking against object, initial encounter; Y93.01 Activity, walking, marching and hiking; Y92.9 Unspecified place or not applicable; Y99.8 Other external cause status; Z79.899 Other long term (current) drug therapy
CPT/HCPCS: 72170; 73552; 73700; 97162; 99284; 99285; S9485

== ENCOUNTER → 2025-07-12 21:34 | Outpatient (BNV) | payer MEDICARE, SELFPAY | PROVIDERS: Emergency Provider Emergency Medicine; PCP Student in an Organized Health Care Education/Training Program; Visit Provider Student in an Organized Health Care Education/Training Program | DX: S72.112A Displaced fracture of greater trochanter of left femur, initial encounter for closed fracture (principal); Z96.642 Presence of left artificial hip joint; W18.30XA Fall on same level, unspecified, initial encounter | CPT/HCPCS: 72170; 73552 ==

== ENCOUNTER → 2025-07-13 08:37 | Outpatient (BNV) | payer MEDICARE, SELFPAY | PROVIDERS: Emergency Provider Emergency Medicine; PCP Student in an Organized Health Care Education/Training Program; Visit Provider Radiology Diagnostic Ultrasound | DX: S72.112A Displaced fracture of greater trochanter of left femur, initial encounter for closed fracture (principal); Z18.10 Retained metal fragments, unspecified | CPT/HCPCS: 73700 ==